=== PATIENT | female | born 1990 | race Caucasian/White ===

== ENCOUNTER 2017-05-24 16:21 | Outpatient (CLI) | payer MEDICAID ==
[~2017-05-24] VITALS: Ht 162.6 cm; Wt 65.9 kg
[~2017-05-24 16:21] MED LIST: PREN1TAB60 PO
[2017-05-24 17:16] VITALS: BP 123/72
[2017-05-24 17:44] LABS: CLUE CELLS PRESENT (NONE SEEN); WET PREP WBCS MODERATE (FEW)
== END 2017-05-24 19:30 | disposition home or self-care (01) ==
LOC: LDOP 16:21
PROVIDERS: ATTEND Obstetrics & Gynecology
DX: O26.892 Other specified pregnancy related conditions, second trimester (principal); Z3A.22 22 weeks gestation of pregnancy
CPT/HCPCS: 59025; 76815; 87210; 87808; 99201; G0463